=== PATIENT | female | born 1995 | race Caucasian/White ===

== ENCOUNTER 2023-08-06 20:11 | Emergency (ER) | payer MEDICAID ==
[~2023-08-06] VITALS: Ht 157.5 cm; Wt 81.6 kg
[2023-08-06 20:27] VITALS: BP_SYST 109; PULSE 75; RESP 16; TEMP 97.7; O2SAT 98
[2023-08-06] MEDS ORDERED: IBUP-1969 PO (21:35)
[2023-08-06] MEDS ORDERED: HYDR-3917 PO (21:35)
== END 2023-08-06 21:44 | disposition home or self-care (01) ==
LOC: SED 20:11
DX: S93.401A Sprain of unspecified ligament of right ankle, initial encounter (principal); S83.91XA Sprain of unspecified site of right knee, initial encounter; S63.501A Unspecified sprain of right wrist, initial encounter; Z79.899 Other long term (current) drug therapy; W01.0XXA Fall on same level from slipping, tripping and stumbling without subsequent striking against object, initial encounter; Y93.89 Activity, other specified; Y92.89 Other specified places as the place of occurrence of the external cause; Y99.8 Other external cause status
CPT/HCPCS: 73560-TC; 81025; 99284